=== PATIENT | female | born 1955 | race Caucasian/White ===

== ENCOUNTER 2018-01-02 14:53 | Inpatient (IN) | payer MEDICARE, OTHER ==
[~2018-01-02] VITALS: Ht 167.6 cm; Wt 115.4 kg
[~2018-01-02 14:53] MED LIST: ALBU8.5H8 IH; AMLO2.5T PO; ARIP15TA3 PO; ESCI20TA38 PO; FURO20TA4 PO; LEVE500T PO; LEVO15TA5 PO; LEVO200T8 PO; LITH300T16 PO; LORA1TAB PO; MULT1TAB74 PO; QUET25TA PO; ZOLP10TA5 PO
[2018-01-02 15:38] LABS: BASOPHILS # (AUTO) 0.1 X10'3 (0-0.2); BASOPHILS % (AUTO) 0.8 % (0-1); EOSINOPHILS # (AUTO) 0.3 X10'3 (0-0.9); EOSINOPHILS % (AUTO) 2.8 % (0-6); HEMATOCRIT 41.3 % (35.0-45.0); HEMOGLOBIN 13.7 g/dl (12.0-16.0); LYMPHOCYTES # (AUTO) 1.7 X10'3 (1.1-4.8); LYMPHOCYTES % (AUTO) 15.5 % (21-51); MEAN CORPUSCULAR HEMOGLOBIN 28.4 PG (27.0-31.0); MEAN CORPUSCULAR HGB CONC 33.3 % (33.0-36.5); MEAN CORPUSCULAR VOLUME 85.2 FL (78-98); MEAN PLATELET VOLUME 9.2 FL (7.4-10.4); MONOCYTES # (AUTO) 0.7 X10'3 (0-0.9); MONOCYTES % (AUTO) 6.5 % (2-12); NEUTROPHILS # (AUTO) 8.2 X10'3 (1.8-7.7); NEUTROPHILS % (AUTO) 74.4 % (42-75); PLATELET COUNT 223 X10'3 (140-440); RED BLOOD COUNT 4.85 X10'6 (4.20-5.60); RED CELL DISTRIBUTION WIDTH 15.4 % (11.5-14.5)
[2018-01-02 15:49] LABS: PARTIAL THROMBOPLASTIN TIME 25 SECONDS (22-32)
[2018-01-02 16:02] LABS: ALANINE AMINOTRANSFERASE 44 U/L (12-78); ALBUMIN 3.6 G/DL (3.4-5.0); ALBUMIN/GLOBULIN RATIO 0.8 (1.1-1.5); ALKALINE PHOSPHATASE 107 IU/L (46-116); ANION GAP 9 (8-16); ASPARTATE AMINO TRANSFERASE 28 U/L (10-37); BILIRUBIN,TOTAL 0.3 MG/DL (0.1-1.0); BLOOD UREA NITROGEN 18 MG/DL (7-18); BUN/CREATININE RATIO 16.4 (6.6-38.0); CALCIUM 9.5 MG/DL (8.5-10.1); CHLORIDE 100 MMOL/L (99-107); GLUCOSE 226 MG/DL (70-104); POTASSIUM 4.8 MMOL/L (3.5-5.1); SODIUM 137 MMOL/L (135-145); TOTAL CARBON DIOXIDE 27.6 MMOL/L (24-32); TOTAL PROTEIN 7.9 G/DL (6.4-8.2); eGFR 50 ML/MIN
[2018-01-02] MEDS ORDERED: clindamycin 600mg/D5W 50ml 50 ML IV ONE (17:35)
[2018-01-02] MEDS ORDERED: ZOLPIDEM TARTRATE 10 MG PO PRN (17:40)
[2018-01-02] MEDS ORDERED: furosemide 40mg tablet PO PRN (17:40)
[2018-01-02] MEDS ORDERED: non-formulary drug (Albuterol Sulfate (Proair Hfa) 2 PUFFS) IH PRN (17:40)
[2018-01-02] MEDS ORDERED: normal saline 1000ML IV soln IVB ONE (17:40)
[2018-01-02] MEDS ORDERED: zolpidem 5mg tablet PO PRN (17:50)
[2018-01-02] MEDS ORDERED: MESSAGE TO PHARMACY PO ONE (17:50)
[2018-01-02] MEDS ORDERED: mag hydrox/Alum hydrox/simeth 30ml oral suspension PO PRN (17:50)
[2018-01-02] MEDS ORDERED: dextrose ORAL solution 15 GM/59 ML bottle PO PRN ×2 (17:50)
[2018-01-02] MEDS ORDERED: dextrose 50%-water 50ml dispensing syringe IV PRN ×2 (17:50)
[2018-01-02] MEDS ORDERED: acetaminophen 325mg tablet PO PRN (17:50)
[2018-01-02] MEDS ORDERED: magnesium hydroxide 30ml (MOM) UD suspension PO PRN (17:50)
[2018-01-02] MEDS ORDERED: glucagon, human recombinant 1mg kit SUBCUT PRN (17:50)
[2018-01-02] MEDS ORDERED: ondansetron/PF 4mg/2ml inj IV PRN (17:50)
[2018-01-02] MEDS ORDERED: albuterol 2.5 MG/3 ML nebule NEB PRN (17:55)
[2018-01-02] MEDS ORDERED: non-formulary drug (Levetiracetam 500 MG) PO SCH (20:00)
[2018-01-02] MEDS: levetiracetam 250mg tablet PO SCH (20:05)
[2018-01-02] MEDS: LORazepam 1 MG tablet PO SCH (20:05)
[2018-01-02 20:35] VITALS: BP 149/80
[2018-01-02] MEDS: lithium carbonate 300mg SR tablet (LithoBID) PO SCH (22:03)
[2018-01-02] MEDS: QUEtiapine 25mg tablet PO SCH (22:03)
[2018-01-02] MEDS: insulin glargine (Lantus) pen - multi-dose SQ SCH (22:14)
[2018-01-03] VITALS: BP 152/89
[2018-01-03 07:00] VITALS: BP 172/94
[2018-01-03] MEDS ORDERED: ARIPIPRAZOLE PO SCH (08:00)
[2018-01-03] MEDS ORDERED: non-formulary drug (Multivitamins 1 TABLET) PO SCH (08:00)
[2018-01-03] MEDS ORDERED: LEVOMEFOLATE CALCIUM PO SCH (08:00)
[2018-01-03] MEDS: levoTHYROXINE 175mcg tablet PO SCH (08:38)
[2018-01-03] MEDS: levetiracetam 250mg tablet PO SCH ×2 (08:38→20:47)
[2018-01-03] MEDS: amLODIPine 2.5mg tablet PO SCH (08:38)
[2018-01-03] MEDS: LORazepam 1 MG tablet PO SCH ×3 (08:38→20:47)
[2018-01-03] MEDS: multivitamins, therapeutics tablet PO SCH (08:38)
[2018-01-03] MEDS: aripiprazole 5mg tablet PO SCH (08:39)
[2018-01-03] MEDS: citalopram 20mg tablet PO SCH (08:39)
[2018-01-03] MEDS: insulin Lispro (HumaLOG) vial - multi-dose SQ SCH ×3 (09:56→19:20)
[2018-01-03 11:00] VITALS: BP 128/101
[2018-01-03] MEDS: lactobacillus rhamnosus 10,000 MMU CELLS/CAPSULE PO SCH (17:09)
[2018-01-03 20:00] VITALS: BP 156/83
[2018-01-03] MEDS: QUEtiapine 25mg tablet PO SCH (20:47)
[2018-01-03] MEDS: lithium carbonate 300mg SR tablet (LithoBID) PO SCH (20:47)
[2018-01-03] MEDS: insulin glargine (Lantus) pen - multi-dose SQ SCH (21:06)
[2018-01-04] VITALS: BP 169/90
[2018-01-04 07:00] VITALS: BP 144/87
[2018-01-04] MEDS: aripiprazole 5mg tablet PO SCH (07:29)
[2018-01-04] MEDS: LORazepam 1 MG tablet PO SCH ×2 (07:29→13:00)
[2018-01-04] MEDS: multivitamins, therapeutics tablet PO SCH (07:30)
[2018-01-04] MEDS: lactobacillus rhamnosus 10,000 MMU CELLS/CAPSULE PO SCH (07:30)
[2018-01-04] MEDS: citalopram 20mg tablet PO SCH (07:30)
[2018-01-04] MEDS: levetiracetam 250mg tablet PO SCH (07:30)
[2018-01-04] MEDS: levoTHYROXINE 175mcg tablet PO SCH (07:30)
[2018-01-04] MEDS: amLODIPine 2.5mg tablet PO SCH (07:30)
[2018-01-04] MEDS ORDERED: VANCOMYCIN LEVEL IV ONE (07:30)
[2018-01-04] MEDS: insulin Lispro (HumaLOG) vial - multi-dose SQ SCH (08:42)
[2018-01-04 11:00] VITALS: BP 148/80
[2018-01-04] MEDS ORDERED: BREX2TAB PO (11:52)
[2018-01-04] MEDS ORDERED: BREXPIPRAZOLE 1 MG PO SCH (12:10)
[2018-01-04] MEDS ORDERED: LEVO500T2 PO (15:20)
[2018-01-04] MEDS ORDERED: vancomycin inj 1,750 MG in normal saline 500ml IV soln 500 ML IV SCH (20:00)
[2018-01-06] MEDS ORDERED: VANCOMYCIN LEVEL IV ONE (07:30)
== END 2018-01-04 15:47 | disposition home or self-care (01) | DRG 602 ==
LOC: ER 14:53 → ED HOLD 17:49 → SUR 3N 20:30
PROVIDERS: ADMIT Internal Medicine; ATTEND Internal Medicine
DX: L03.116 Cellulitis of left lower limb (principal); E43 Unspecified severe protein-calorie malnutrition; Z68.41 Body mass index [BMI] 40.0-44.9, adult; I69.354 Hemiplegia and hemiparesis following cerebral infarction affecting left non-dominant side; E66.01 Morbid (severe) obesity due to excess calories; F20.9 Schizophrenia, unspecified; E11.9 Type 2 diabetes mellitus without complications; E78.00 Pure hypercholesterolemia, unspecified; F32.9 Major depressive disorder, single episode, unspecified; F41.9 Anxiety disorder, unspecified; G40.909 Epilepsy, unspecified, not intractable, without status epilepticus; I10 Essential (primary) hypertension; J44.9 Chronic obstructive pulmonary disease, unspecified; K21.9 Gastro-esophageal reflux disease without esophagitis; G89.29 Other chronic pain; M54.9 Dorsalgia, unspecified; E03.9 Hypothyroidism, unspecified; F12.90 Cannabis use, unspecified, uncomplicated; Z60.2 Problems related to living alone; Z79.899 Other long term (current) drug therapy; Z87.891 Personal history of nicotine dependence
CPT/HCPCS: 36415; 80053; 80202; 82948; 83036; 83605; 84145; 85025; 85610; 85730; 87040; 87070; 93971; 94760; 99285; A4315; C1758; J1815; J3370; J3490; J7030

== ENCOUNTER 2018-02-06 18:38 | Inpatient (IN) | payer MEDICARE, OTHER ==
[~2018-02-06] VITALS: Ht 5367.7 cm; Wt 113.6 kg
[~2018-02-06 18:38] MED LIST changes: +BREX2TAB PO
[2018-02-06] MEDS ORDERED: ondansetron/PF 4mg/2ml inj IV ONE (20:10)
[2018-02-06] MEDS ORDERED: normal saline 1000ML IV soln IVB ONE ×3 (20:10→21:45)
[2018-02-06 21:09] LABS: BASOPHILS % (AUTO) 0.1 % (0-1); EOSINOPHILS % (AUTO) 0 % (0-6); HEMATOCRIT 44.5 % (35.0-45.0); LYMPHOCYTES # (AUTO) 0.6 X10'3 (1.1-4.8); LYMPHOCYTES % (AUTO) 1.9 % (21-51); MEAN CORPUSCULAR HEMOGLOBIN 28.6 PG (27.0-31.0); MEAN CORPUSCULAR HGB CONC 33.7 % (33.0-36.5); MEAN CORPUSCULAR VOLUME 85.1 FL (78-98); MEAN PLATELET VOLUME 9.8 FL (7.4-10.4); MONOCYTES # (AUTO) 0.7 X10'3 (0-0.9); MONOCYTES % (AUTO) 2.4 % (2-12); NEUTROPHILS # (AUTO) 29.2 X10'3 (1.8-7.7); NEUTROPHILS % (AUTO) 95.6 % (42-75); PLATELET COUNT 195 X10'3 (140-440); RED BLOOD COUNT 5.23 X10'6 (4.20-5.60); RED CELL DISTRIBUTION WIDTH 14.4 % (11.5-14.5)
[2018-02-06 21:16] LABS: WHITE BLOOD COUNT 30.5 X10'3 (4.5-11.0)
[2018-02-06 21:25] LABS: AMMONIA < 10 UMOL/L (11-32)
[2018-02-06 21:35] LABS: ALANINE AMINOTRANSFERASE 44 U/L (12-78); ALBUMIN 3.8 G/DL (3.4-5.0); ALBUMIN/GLOBULIN RATIO 0.8 (1.1-1.5); ALKALINE PHOSPHATASE 96 IU/L (46-116); ANION GAP 16 (8-16); ASPARTATE AMINO TRANSFERASE 27 U/L (10-37); BILIRUBIN,TOTAL 0.7 MG/DL (0.1-1.0); BLOOD UREA NITROGEN 14 MG/DL (7-18); BUN/CREATININE RATIO 11.3 (6.6-38.0); CALCIUM 10.2 MG/DL (8.5-10.1); CHLORIDE 98 MMOL/L (99-107); CREATINE KINASE 62 U/L (26-192); CREATININE 1.24 MG/DL (0.40-0.90); GLUCOSE 307 MG/DL (70-104); MAGNESIUM 1.5 MG/DL (1.5-2.4); PHOSPHORUS 2.2 MG/DL (2.3-4.5); SODIUM 136 MMOL/L (135-145); TOTAL CARBON DIOXIDE 22.5 MMOL/L (24-32); TOTAL PROTEIN 8.7 G/DL (6.4-8.2); eGFR 44 ML/MIN
[2018-02-06 21:44] LABS: LACTIC SEPSIS 5.6 MMOL/L (0.4-2.0)
[2018-02-06] MEDS ORDERED: CefTRIAXone 2gm/NS 100ml IVPB 100 ML IV ONE ×2 (21:45→23:55)
[2018-02-06 22:22] LABS: TOTAL CELLS COUNTED 100
[2018-02-06 22:23] LABS: PLATELET ESTIMATE NORMAL
[2018-02-06 22:28] LABS: BURR CELLS 1+; TARGET CELLS FEW
[2018-02-06 22:29] LABS: LARGE PLATELETS MODERATE
[2018-02-06] MEDS ORDERED: LORazepam 2 mg/ml vial ONE (23:19)
[2018-02-06] MEDS ORDERED: LORazepam 2 mg/ml vial IV ONE (23:20)
[2018-02-06] MEDS ORDERED: levetiracetam inj 1,500 MG in normal saline 100ml IV soln 85 ML IV ONE (23:25)
[2018-02-06] MEDS ORDERED: vancomycin/NS 1 GM ADD-VANTAGE 250 ML IV ONE (23:25)
[2018-02-06] MEDS ORDERED: acetaminophen 1,000mg/100ml IV 100 ML IV ONE (23:50)
[2018-02-07] MEDS: normal saline 1000ml 1,000 ML IV SCH ×3 (00:04→15:52)
[2018-02-07] MEDS ORDERED: HYDROcodone/acetaminophen 10/325mg tab PO PRN (00:05)
[2018-02-07] MEDS ORDERED: mag hydrox/Alum hydrox/simeth 30ml oral suspension PO PRN (00:05)
[2018-02-07] MEDS ORDERED: magnesium hydroxide 30ml (MOM) UD suspension PO PRN (00:05)
[2018-02-07] MEDS ORDERED: magnesium 2GM in 50ml NS 50 ML IV PRN (00:05)
[2018-02-07] MEDS ORDERED: potassium Cl 20 mEq SR tablet PO PRN ×2 (00:05)
[2018-02-07] MEDS ORDERED: magnesium Cl slow-release 64mg tablet PO PRN (00:05)
[2018-02-07] MEDS ORDERED: potassium Cl 40MEQ/NS 500ml 500 ML IV PRN ×2 (00:05)
[2018-02-07] MEDS ORDERED: ondansetron/PF 4mg/2ml inj IV PRN (00:05)
[2018-02-07] MEDS ORDERED: HYDROcodone/acetaminophen 5mg/325mg tablet PO PRN (00:05)
[2018-02-07] MEDS ORDERED: magnesium 4gm in 100ml NS 100 ML IV PRN (00:05)
[2018-02-07] MEDS ORDERED: levetiracetam 100mg/ml inj IV ONE (00:10)
[2018-02-07 00:13] LABS: CLARITY,URINE SLIGHTLY CLOUDY (Clear); COLOR,URINE YELLOW (Yellow); GLUCOSE, URINE 250 mg/dl (Neg); KETONES,URINE 15 mg/dl (Neg); LEUKOCYTE ESTERASE ,URINE NEGATIVE (Neg); NITRITES, URINE NEGATIVE (Neg); OCCULT BLOOD,URINE TRACE-INTACT (Neg); PH,URINE 6.5 (4.8-8.0); PROTEIN,URINE 30 mg/dl (Neg); UROBILINOGEN,URINE 0.2 E.U/dL (0.2-1.0)
[2018-02-07 00:14] LABS: UA COLLECTION TYPE CLN CATCH MIDSTREAM
[2018-02-07 00:20] LABS: RBC,URINE 0-2 /HPF (0-2)
[2018-02-07 00:21] LABS: MUCUS STRANDS MANY /LPF (Neg); SQUAMOUS EPITHELIAL CELL,UR FEW /LPF (FEW); URINE AMPHETAMINE SCREEN NEGATIVE (Neg); URINE BARBITUATE SCREEN NEGATIVE (Neg); URINE BENZODIAZEPINES SCREEN NEGATIVE (Neg); URINE CANNABINOID SCREEN POSITIVE (Neg); URINE COCAINE SCREEN NEGATIVE (Neg); URINE METHADONE SCREEN NEGATIVE (Neg); URINE OPIATE SCREEN NEGATIVE (Neg); URINE PHENCYCLIDINE SCREEN NEGATIVE (Neg)
[2018-02-07 00:28] LABS: BACTERIA,URINE FEW /HPF (Neg)
[2018-02-07] MEDS: acetaminophen 325mg tablet PO PRN ×4 (01:17→23:42)
[2018-02-07 04:40] LABS: HEMOGLOBIN A1C 8.7 % (4.5-6.2)
[2018-02-07] MEDS ORDERED: vancomycin/NS 1 GM ADD-VANTAGE 250 ML X 1 DOSE IV ONE (06:55)
[2018-02-07] MEDS ORDERED: LEVO175T7 PO (06:56)
[2018-02-07] MEDS: LEVOMEFOLATE CALCIUM PO SCH ×2 (07:05→08:00)
[2018-02-07] MEDS: heparin, porcine 5000 units/ml vial SQ SCH (08:00)
[2018-02-07] MEDS ORDERED: escitalopram 20mg tablet PO SCH (08:00)
[2018-02-07] MEDS ORDERED: vancomycin/NS 1 GM ADD-VANTAGE 250 ML IV SCH (08:00)
[2018-02-07] MEDS: K and/or MAG REPLACEMENT MC SCH (08:21)
[2018-02-07 08:31] LABS: BASOPHILS % (AUTO) 0 % (0-1); EOSINOPHILS % (AUTO) 0 % (0-6); HEMOGLOBIN 13.7 g/dl (12.0-16.0); LYMPHOCYTES # (AUTO) 0.8 X10'3 (1.1-4.8); LYMPHOCYTES % (AUTO) 2.8 % (21-51); MEAN CORPUSCULAR HEMOGLOBIN 29.1 PG (27.0-31.0); MEAN CORPUSCULAR HGB CONC 34.3 % (33.0-36.5); MEAN CORPUSCULAR VOLUME 84.9 FL (78-98); MONOCYTES # (AUTO) 0.5 X10'3 (0-0.9); MONOCYTES % (AUTO) 1.6 % (2-12); NEUTROPHILS # (AUTO) 27.2 X10'3 (1.8-7.7); NEUTROPHILS % (AUTO) 95.6 % (42-75); PLATELET COUNT 164 X10'3 (140-440); RED BLOOD COUNT 4.71 X10'6 (4.20-5.60); RED CELL DISTRIBUTION WIDTH 15.1 % (11.5-14.5)
[2018-02-07 08:33] LABS: WHITE BLOOD COUNT 28.5 X10'3 (4.5-11.0)
[2018-02-07] MEDS ORDERED: LORazepam 2 mg/ml vial IV PRN (08:45)
[2018-02-07] MEDS ORDERED: CefTRIAXone 2gm/NS 100ml IVPB 100 ML IV SCH ×2 (08:45→21:00)
[2018-02-07 08:50] LABS: TOTAL CELLS COUNTED 100
[2018-02-07 08:51] LABS: ANISOCYTOSIS 1+; PLATELET ESTIMATE NORMAL; POIKILOCYTOSIS 1+; TARGET CELLS FEW
[2018-02-07] MEDS ORDERED: dextrose 50%-water 50ml dispensing syringe IV PRN ×2 (08:55)
[2018-02-07] MEDS ORDERED: dextrose ORAL solution 15 GM/59 ML bottle PO PRN ×2 (08:55)
[2018-02-07] MEDS ORDERED: MESSAGE TO PHARMACY PO ONE (08:55)
[2018-02-07] MEDS ORDERED: glucagon, human recombinant 1mg kit SUBCUT PRN (08:55)
[2018-02-07 08:57] LABS: ALANINE AMINOTRANSFERASE 36 U/L (12-78); ALBUMIN 2.9 G/DL (3.4-5.0); ALBUMIN/GLOBULIN RATIO 0.7 (1.1-1.5); ALKALINE PHOSPHATASE 75 IU/L (46-116); ANION GAP 14 (8-16); ASPARTATE AMINO TRANSFERASE 21 U/L (10-37); BILIRUBIN,TOTAL 0.5 MG/DL (0.1-1.0); BLOOD UREA NITROGEN 13 MG/DL (7-18); BUN/CREATININE RATIO 12.5 (6.6-38.0); CALCIUM 8.8 MG/DL (8.5-10.1); CHLORIDE 104 MMOL/L (99-107); CREATININE 1.04 MG/DL (0.40-0.90); GLUCOSE 253 MG/DL (70-104); POTASSIUM 3.9 MMOL/L (3.5-5.1); SODIUM 139 MMOL/L (135-145); TOTAL CARBON DIOXIDE 21.5 MMOL/L (24-32); TOTAL PROTEIN 7.3 G/DL (6.4-8.2); eGFR 53 ML/MIN
[2018-02-07] MEDS: levoTHYROXINE 175mcg tablet PO SCH (09:52)
[2018-02-07] MEDS: aripiprazole 5mg tablet PO SCH (09:53)
[2018-02-07] MEDS: lactobacillus rhamnosus 10,000 MMU CELLS/CAPSULE PO SCH ×2 (09:53→21:04)
[2018-02-07] MEDS: amLODIPine 2.5mg tablet PO SCH (09:53)
[2018-02-07] MEDS: LORazepam 1 MG tablet PO SCH ×3 (09:54→21:03)
[2018-02-07] MEDS: levetiracetam 250mg tablet PO SCH ×2 (09:54→21:03)
[2018-02-07] MEDS: citalopram 20mg tablet PO SCH (09:54)
[2018-02-07 10:04] LABS: INR 1.2 INR; PARTIAL THROMBOPLASTIN TIME 29 SECONDS (22-32); PROTHROMBIN TIME 12.1 SECONDS (9.0-12.0)
[2018-02-07 11:20] VITALS: BP 147/87
[2018-02-07 11:32] VITALS: BP 136/57
[2018-02-07] MEDS: vancomycin inj. 750 MG in normal saline 250ml IV soln 250 ML IV SCH ×2 (11:46→16:26)
[2018-02-07] MEDS: albuterol 2.5 MG/3 ML nebule NEB SCH ×3 (12:00→20:30)
[2018-02-07 12:37] LABS: GLUCOSE,CSF 166 MG/DL (40-75); TOTAL PROTEIN,CSF 46 MG/DL (30-60)
[2018-02-07 12:50] LABS: APPEARANCE,CSF CLEAR; CSF SUPERNATANT COLOR COLORLESS; CSF VOLUME 14 ML; TUBE# COUNTED 4
[2018-02-07 12:51] LABS: CSF RBC 3 /CU MM (0); CSF WBC CT 2 /CU MM (0-5)
[2018-02-07] MEDS: insulin Lispro (HumaLOG) vial - multi-dose SQ SCH ×2 (14:19→18:00)
[2018-02-07 19:00] VITALS: BP 155/75
[2018-02-07] MEDS ORDERED: VANCOMYCIN 750MG IV in NS 250 ML IV SCH (20:00)
[2018-02-07] MEDS: insulin glargine (Lantus) pen - multi-dose SQ SCH (21:00)
[2018-02-07] MEDS: QUEtiapine 25mg tablet PO SCH (21:04)
[2018-02-07] MEDS: lithium carbonate 300mg SR tablet (LithoBID) PO SCH (21:04)
[2018-02-07 22:00] VITALS: BP 133/75
[2018-02-08] MEDS: albuterol 2.5 MG/3 ML nebule NEB SCH ×7 (00:09→23:48)
[2018-02-08] MEDS ORDERED: ibuprofen tablet 400 MG TABLET PO PRN (01:45)
[2018-02-08] MEDS ORDERED: vancomycin inj. 750 MG in normal saline 250ml IV soln 250 ML IV SCH (05:00)
[2018-02-08 06:00] VITALS: BP 133/69
[2018-02-08] MEDS ORDERED: VANCOMYCIN LEVEL IV ONE (07:30)
[2018-02-08] MEDS: LEVOMEFOLATE CALCIUM PO SCH (08:00)
[2018-02-08] MEDS ORDERED: CefTRIAXone 2gm/NS 100ml IVPB 100 ML IV SCH (08:00)
[2018-02-08] MEDS: K and/or MAG REPLACEMENT MC SCH (08:00)
[2018-02-08 08:19] LABS: BASOPHILS % (AUTO) 0 % (0-1); EOSINOPHILS % (AUTO) 0.1 % (0-6); HEMOGLOBIN 12.3 g/dl (12.0-16.0); LYMPHOCYTES # (AUTO) 0.5 X10'3 (1.1-4.8); LYMPHOCYTES % (AUTO) 3.3 % (21-51); MEAN CORPUSCULAR HEMOGLOBIN 28.8 PG (27.0-31.0); MEAN CORPUSCULAR HGB CONC 34.2 % (33.0-36.5); MEAN CORPUSCULAR VOLUME 84.2 FL (78-98); MEAN PLATELET VOLUME 9.3 FL (7.4-10.4); MONOCYTES # (AUTO) 0.2 X10'3 (0-0.9); MONOCYTES % (AUTO) 1.5 % (2-12); NEUTROPHILS # (AUTO) 14.1 X10'3 (1.8-7.7); NEUTROPHILS % (AUTO) 95.1 % (42-75); PLATELET COUNT 137 X10'3 (140-440); RED BLOOD COUNT 4.27 X10'6 (4.20-5.60); RED CELL DISTRIBUTION WIDTH 15.2 % (11.5-14.5); WHITE BLOOD COUNT 14.8 X10'3 (4.5-11.0)
[2018-02-08 08:36] LABS: ALANINE AMINOTRANSFERASE 32 U/L (12-78); ALBUMIN 2.3 G/DL (3.4-5.0); ALBUMIN/GLOBULIN RATIO 0.5 (1.1-1.5); ALKALINE PHOSPHATASE 75 IU/L (46-116); ANION GAP 12 (8-16); ASPARTATE AMINO TRANSFERASE 21 U/L (10-37); BILIRUBIN,TOTAL 0.4 MG/DL (0.1-1.0); BLOOD UREA NITROGEN 16 MG/DL (7-18); CALCIUM 8.6 MG/DL (8.5-10.1); CHLORIDE 108 MMOL/L (99-107); CHOL/HDL RATIO 5.5 (0.00-4.99); CHOLESTEROL 122 MG/DL (0-200); GLUCOSE 193 MG/DL (70-104); HDL CHOLESTEROL 22 MG/DL (35-60); LDL CHOLESTEROL 57 MG/DL (50-100); MAGNESIUM 1.9 MG/DL (1.5-2.4); POTASSIUM 3.1 MMOL/L (3.5-5.1); SODIUM 141 MMOL/L (135-145); TOTAL PROTEIN 6.6 G/DL (6.4-8.2); TRIGLYCERIDES 165 MG/DL (20-135); eGFR 72 ML/MIN
[2018-02-08] MEDS: lactobacillus rhamnosus 10,000 MMU CELLS/CAPSULE PO SCH ×2 (08:44→22:07)
[2018-02-08] MEDS: amLODIPine 2.5mg tablet PO SCH (08:45)
[2018-02-08] MEDS: levetiracetam 250mg tablet PO SCH ×2 (08:45→22:07)
[2018-02-08] MEDS: levoTHYROXINE 175mcg tablet PO SCH (08:45)
[2018-02-08] MEDS: citalopram 20mg tablet PO SCH (08:45)
[2018-02-08] MEDS: LORazepam 1 MG tablet PO SCH ×3 (08:45→22:07)
[2018-02-08] MEDS: heparin, porcine 5000 units/ml vial SQ SCH ×2 (08:45→22:06)
[2018-02-08] MEDS: insulin Lispro (HumaLOG) vial - multi-dose SQ SCH ×3 (09:23→18:43)
[2018-02-08 09:40] LABS: C DIFF ANTIGEN SEE COMMENTS (NEGATIVE); C DIFF SPECIMEN=DIARRHEA? ACCEPTABLE; C DIFFICILE TOXINS A&B NEGATIVE (Neg)
[2018-02-08 10:00] VITALS: BP 130/87
[2018-02-08 10:44] LABS: C DIFF TOXIN (LAMP) NEGATIVE (NEG)
[2018-02-08] MEDS: aripiprazole 5mg tablet PO SCH (11:30)
[2018-02-08] MEDS ORDERED: levoFLOXACIN-Levaquin 500mg/D5 100 ML IV SCH (14:25)
[2018-02-08] MEDS: clindamycin 600mg/D5W 50ml 50 ML IV SCH ×2 (15:31→20:00)
[2018-02-08] MEDS ORDERED: iohexol 300mg/ml 100ml inj. ONE (17:17)
[2018-02-08 18:00] VITALS: BP 163/96
[2018-02-08] MEDS ORDERED: levoFLOXACIN 500mg tablet PO ONE (21:05)
[2018-02-08] MEDS: clindamycin 150mg capsule PO SCH (22:06)
[2018-02-08] MEDS: lithium carbonate 300mg SR tablet (LithoBID) PO SCH (22:07)
[2018-02-08] MEDS: QUEtiapine 25mg tablet PO SCH (22:07)
[2018-02-08] MEDS: insulin glargine (Lantus) pen - multi-dose SQ SCH (22:13)
[2018-02-09] MEDS: clindamycin 150mg capsule PO SCH ×2 (02:07→09:52)
[2018-02-09] MEDS: albuterol 2.5 MG/3 ML nebule NEB SCH ×3 (03:56→11:49)
[2018-02-09] MEDS ORDERED: VANCOMYCIN LEVEL IV ONE (04:30)
[2018-02-09 06:00] VITALS: BP 127/81
[2018-02-09 06:07] LABS: BASOPHILS % (AUTO) 0.3 % (0-1); EOSINOPHILS # (AUTO) 0.1 X10'3 (0-0.9); EOSINOPHILS % (AUTO) 1.2 % (0-6); HEMATOCRIT 35.3 % (35.0-45.0); HEMOGLOBIN 12.1 g/dl (12.0-16.0); LYMPHOCYTES # (AUTO) 0.9 X10'3 (1.1-4.8); LYMPHOCYTES % (AUTO) 8.4 % (21-51); MEAN CORPUSCULAR HEMOGLOBIN 29.3 PG (27.0-31.0); MEAN CORPUSCULAR HGB CONC 34.3 % (33.0-36.5); MEAN CORPUSCULAR VOLUME 85.6 FL (78-98); MEAN PLATELET VOLUME 10.2 FL (7.4-10.4); MONOCYTES # (AUTO) 0.6 X10'3 (0-0.9); MONOCYTES % (AUTO) 5.6 % (2-12); NEUTROPHILS # (AUTO) 9.2 X10'3 (1.8-7.7); NEUTROPHILS % (AUTO) 84.5 % (42-75); PLATELET COUNT 135 X10'3 (140-440); RED BLOOD COUNT 4.13 X10'6 (4.20-5.60); RED CELL DISTRIBUTION WIDTH 14.9 % (11.5-14.5); WHITE BLOOD COUNT 10.9 X10'3 (4.5-11.0)
[2018-02-09 06:29] LABS: ALANINE AMINOTRANSFERASE 41 U/L (12-78); ALBUMIN 2.3 G/DL (3.4-5.0); ALBUMIN/GLOBULIN RATIO 0.5 (1.1-1.5); ALKALINE PHOSPHATASE 99 IU/L (46-116); ANION GAP 12 (8-16); ASPARTATE AMINO TRANSFERASE 29 U/L (10-37); BILIRUBIN,TOTAL 0.4 MG/DL (0.1-1.0); BLOOD UREA NITROGEN 14 MG/DL (7-18); BUN/CREATININE RATIO 17.5 (6.6-38.0); CHLORIDE 109 MMOL/L (99-107); GLUCOSE 176 MG/DL (70-104); MAGNESIUM 2.2 MG/DL (1.5-2.4); POTASSIUM 3.3 MMOL/L (3.5-5.1); SODIUM 141 MMOL/L (135-145); TOTAL CARBON DIOXIDE 20.4 MMOL/L (24-32); eGFR 72 ML/MIN
[2018-02-09] MEDS: heparin, porcine 5000 units/ml vial SQ SCH ×2 (07:37→19:08)
[2018-02-09] MEDS: levetiracetam 250mg tablet PO SCH ×2 (07:37→19:08)
[2018-02-09] MEDS: lactobacillus rhamnosus 10,000 MMU CELLS/CAPSULE PO SCH ×2 (07:37→19:08)
[2018-02-09] MEDS: LORazepam 1 MG tablet PO SCH ×3 (07:38→21:23)
[2018-02-09] MEDS: levoTHYROXINE 175mcg tablet PO SCH (07:38)
[2018-02-09] MEDS: citalopram 20mg tablet PO SCH (07:38)
[2018-02-09] MEDS: amLODIPine 2.5mg tablet PO SCH (07:38)
[2018-02-09] MEDS: K and/or MAG REPLACEMENT MC SCH (08:00)
[2018-02-09] MEDS: LEVOMEFOLATE CALCIUM PO SCH (08:00)
[2018-02-09] MEDS: aripiprazole 5mg tablet PO SCH (09:51)
[2018-02-09 10:00] VITALS: BP 124/75
[2018-02-09] MEDS ORDERED: ATOR20TA66 (10:10)
[2018-02-09] MEDS ORDERED: LISI-604 (10:10)
[2018-02-09] MEDS ORDERED: OMEP-50 (10:10)
[2018-02-09] MEDS ORDERED: LAMO100T89 (10:10)
[2018-02-09] MEDS ORDERED: iohexol 300mg/ml 100ml inj. ONE (13:24)
[2018-02-09] MEDS: clindamycin 600mg/D5W 50ml 50 ML IV SCH ×2 (15:02→19:09)
[2018-02-09] MEDS ORDERED: albuterol 2.5 MG/3 ML nebule NEB PRN (15:05)
[2018-02-09] MEDS: insulin Lispro (HumaLOG) vial - multi-dose SQ SCH ×2 (15:17→19:04)
[2018-02-09 18:52] VITALS: BP 126/78
[2018-02-09] MEDS: ipratropium/albuterol 3ml nebule NEB SCH ×2 (19:00→23:47)
[2018-02-09] MEDS ORDERED: levoFLOXACIN-Levaquin 500mg/D5 100 ML IV SCH (21:00)
[2018-02-09] MEDS: lithium carbonate 300mg SR tablet (LithoBID) PO SCH (21:23)
[2018-02-09] MEDS: QUEtiapine 25mg tablet PO SCH (21:23)
[2018-02-09] MEDS: insulin glargine (Lantus) pen - multi-dose SQ SCH (21:25)
[2018-02-09 22:46] VITALS: BP 145/74
[2018-02-10] MEDS: clindamycin 600mg/D5W 50ml 50 ML IV SCH ×3 (02:23→14:00)
[2018-02-10] MEDS: ipratropium/albuterol 3ml nebule NEB SCH ×3 (03:37→11:24)
[2018-02-10 04:10] LABS: ALANINE AMINOTRANSFERASE 79 U/L (12-78); ALBUMIN 2.1 G/DL (3.4-5.0); ALBUMIN/GLOBULIN RATIO 0.4 (1.1-1.5); ALKALINE PHOSPHATASE 106 IU/L (46-116); ANION GAP 10 (8-16); ASPARTATE AMINO TRANSFERASE 59 U/L (10-37); BILIRUBIN,TOTAL 0.4 MG/DL (0.1-1.0); BLOOD UREA NITROGEN 12 MG/DL (7-18); BUN/CREATININE RATIO 14.6 (6.6-38.0); CALCIUM 8.6 MG/DL (8.5-10.1); CHLORIDE 110 MMOL/L (99-107); CREATININE 0.82 MG/DL (0.40-0.90); GLUCOSE 164 MG/DL (70-104); POTASSIUM 3.2 MMOL/L (3.5-5.1); SODIUM 144 MMOL/L (135-145); TOTAL PROTEIN 6.8 G/DL (6.4-8.2); eGFR 70 ML/MIN
[2018-02-10 05:00] VITALS: BP 118/70
[2018-02-10] MEDS ORDERED: magnesium 4gm in 100ml NS 100 ML IV PRN (05:10)
[2018-02-10] MEDS ORDERED: potassium Cl 40MEQ/NS 500ml 500 ML IV PRN ×2 (05:10)
[2018-02-10] MEDS ORDERED: potassium Cl 20 mEq SR tablet PO PRN ×2 (05:10)
[2018-02-10] MEDS ORDERED: magnesium Cl slow-release 64mg tablet PO PRN (05:10)
[2018-02-10] MEDS ORDERED: magnesium 2GM in 50ml NS 50 ML IV PRN (05:10)
[2018-02-10] MEDS: aripiprazole 5mg tablet PO SCH (07:54)
[2018-02-10] MEDS: levoTHYROXINE 175mcg tablet PO SCH (07:54)
[2018-02-10] MEDS: lactobacillus rhamnosus 10,000 MMU CELLS/CAPSULE PO SCH (07:54)
[2018-02-10] MEDS: citalopram 20mg tablet PO SCH (07:54)
[2018-02-10] MEDS: LORazepam 1 MG tablet PO SCH ×2 (07:54→13:25)
[2018-02-10] MEDS: levetiracetam 250mg tablet PO SCH (07:55)
[2018-02-10] MEDS: heparin, porcine 5000 units/ml vial SQ SCH (07:55)
[2018-02-10] MEDS: amLODIPine 2.5mg tablet PO SCH (07:55)
[2018-02-10] MEDS: LEVOMEFOLATE CALCIUM PO SCH (08:00)
[2018-02-10] MEDS: K and/or MAG REPLACEMENT MC SCH (08:00)
[2018-02-10] MEDS: insulin Lispro (HumaLOG) vial - multi-dose SQ SCH ×2 (09:11→13:26)
[2018-02-10 10:00] VITALS: BP 132/79
[2018-02-10] MEDS ORDERED: LEVO500T2 PO (12:28)
[2018-02-10] MEDS ORDERED: POTA20TA19 PO (12:38)
== END 2018-02-10 16:02 | disposition home health service (06) | DRG 871 ==
LOC: ER 18:39 → ED HOLD 02-07 00:04 → ORTHO 4S 02-07 18:52
PROVIDERS: ADMIT Internal Medicine; ATTEND Internal Medicine
PROC: 009U3ZX Drainage of Spinal Canal, Percutaneous Approach, Diagnostic (ICD-10-PCS; principal; 2018-02-07)
PROC: B01B1ZZ Fluoroscopy of Spinal Cord using Low Osmolar Contrast (ICD-10-PCS; 2018-02-07)
PROC: BQ2S1ZZ Computerized Tomography (CT Scan) of Left Lower Extremity using Low Osmolar Contrast (ICD-10-PCS; 2018-02-09)
DX: A40.1 Sepsis due to streptococcus, group B (principal); G93.41 Metabolic encephalopathy; K52.1 Toxic gastroenteritis and colitis; F03.90 Unspecified dementia, unspecified severity, without behavioral disturbance, psychotic disturbance, mood disturbance, and anxiety; R56.9 Unspecified convulsions; L03.116 Cellulitis of left lower limb; E87.1 Hypo-osmolality and hyponatremia; I69.354 Hemiplegia and hemiparesis following cerebral infarction affecting left non-dominant side; J44.1 Chronic obstructive pulmonary disease with (acute) exacerbation; E11.65 Type 2 diabetes mellitus with hyperglycemia; E66.01 Morbid (severe) obesity due to excess calories; E83.52 Hypercalcemia; F31.9 Bipolar disorder, unspecified; E03.9 Hypothyroidism, unspecified; E78.00 Pure hypercholesterolemia, unspecified; E78.5 Hyperlipidemia, unspecified; F20.9 Schizophrenia, unspecified; F41.9 Anxiety disorder, unspecified; I10 Essential (primary) hypertension; J44.9 Chronic obstructive pulmonary disease, unspecified; K21.9 Gastro-esophageal reflux disease without esophagitis; N28.9 Disorder of kidney and ureter, unspecified; F12.90 Cannabis use, unspecified, uncomplicated; G89.29 Other chronic pain; M54.9 Dorsalgia, unspecified; T36.8X5A Adverse effect of other systemic antibiotics, initial encounter; Y92.238 Other place in hospital as the place of occurrence of the external cause; Z99.3 Dependence on wheelchair; Z79.899 Other long term (current) drug therapy
CPT/HCPCS: 36415; 62270; 70450; 71045; 73701; 74176; 77003; 80053; 80061; 80178; 80305; 81001; 82140; 82550; 82945; 82948; 83036; 83605; 83735; 84100; 84157; 84443; 84484; 85025; 85610; 85730; 87015; 87040; 87070; 87075; 87077; 87088; 87186; 87210; 87324; 87449; 87493; 89051; 93005; 93971; 94640; 94760; 96361; 96365; 97110; 97116; 97162; 97530; 99285; A4620; A6258; C1758; J0131; J0696; J1644; J1815; J1953; J1956; J2060; J2405; J3370; J3480; J3490; J7030; Q9967

== ENCOUNTER 2021-03-21 09:56 | Outpatient (CLI) | payer MEDICARE ==
[~2021-03-21 09:56] MED LIST changes: -AMLO2.5T PO; +AMLO2.5T5 PO; +ATOR20TA66; -ESCI20TA38 PO; +ESCI20TA39 PO; -FURO20TA4 PO; +LAMO100T; +LEVO175T7 PO; -LEVO200T8 PO; +LISI-790; +MULT-620 PO; -MULT1TAB74 PO; +OMEP-50
== END 2021-03-21 23:59 | disposition home or self-care (01) ==
LOC: VAS 09:56
PROVIDERS: ATTEND Family Medicine
DX: R22.42 Localized swelling, mass and lump, left lower limb (principal)
CPT/HCPCS: 93971

== ENCOUNTER 2022-07-13 18:11 | Emergency (ER) | payer MEDICARE ==
[~2022-07-13] VITALS: Ht 167.6 cm; Wt 113.6 kg
[~2022-07-13 18:11] MED LIST changes: +ALBU8.5H17 IH; -ALBU8.5H8 IH; -LISI-790; +LISI5TAB22; -OMEP-50; +OMEP20CA16
[2022-07-13 18:48] VITALS: BP 142/75
[2022-07-13] MEDS ORDERED: LORazepam 1 MG tablet PO ONE (21:10)
[2022-07-13] MEDS ORDERED: naproxen 500mg tablet PO ONE (21:10)
[2022-07-13] MEDS ORDERED: NAPR-56 PO (21:14)
--- NOTE | 2022-07-13 22:09 | NUR ---
Left message with caregiver Gabriela that pt was being discharged. Pt will go home by [facility].
== END 2022-07-13 23:05 | disposition home or self-care (01) ==
LOC: ER 18:12
DX: S90.32XA Contusion of left foot, initial encounter (principal); E78.00 Pure hypercholesterolemia, unspecified; I10 Essential (primary) hypertension; J44.9 Chronic obstructive pulmonary disease, unspecified; K21.9 Gastro-esophageal reflux disease without esophagitis; E11.9 Type 2 diabetes mellitus without complications; G89.29 Other chronic pain; M54.50 Low back pain, unspecified; F12.90 Cannabis use, unspecified, uncomplicated; Z98.890 Other specified postprocedural states; W18.2XXA Fall in (into) shower or empty bathtub, initial encounter; Y93.89 Activity, other specified; Y92.89 Other specified places as the place of occurrence of the external cause; Y99.8 Other external cause status
CPT/HCPCS: 73120; 73590; 73630; 99284

== ENCOUNTER 2023-07-31 16:30 | Emergency (ER) | payer MEDICARE, MEDICAID ==
[~2023-07-31] VITALS: Ht 167.6 cm; Wt 113.6 kg
[~2023-07-31 16:30] MED LIST changes: -ALBU8.5H17 IH; -AMLO2.5T5 PO; +AMLO5TAB16 PO; -ARIP15TA3 PO; -ATOR20TA66; +ATOR20TA66 PO; +BREX1TAB PO; -BREX2TAB PO; +CIPR-259 PO; -LAMO100T; +LEVE250T PO; -LEVE500T PO; +LEVO150T8 PO; -LEVO15TA5 PO; -LEVO175T7 PO; -LISI5TAB22; +LISI5TAB22 PO; -LITH300T16 PO; -LORA1TAB PO; -MULT-620 PO; -OMEP20CA16; +OMEP20CA16 PO; -QUET25TA PO; +SEMA1PEN3 SQ; +SILV25CR21 TOP
[2023-07-31 20:22] VITALS: TEMP 98.5
[2023-07-31] MEDS ORDERED: acetaminophen 325mg tablet PO ONE (22:20)
[2023-07-31] MEDS ORDERED: LAMO100T PO (23:03)
[2023-07-31 23:13] LABS: HEMOGLOBIN 11.6 g/dl (12.0-16.0)
[2023-07-31 23:15] LABS: BASOPHILS # (AUTO) 0.1 X10'3 (0-0.2); BASOPHILS % (AUTO) 0.8 % (0-1); EOSINOPHILS # (AUTO) 0.2 X10'3 (0-0.9); EOSINOPHILS % (AUTO) 1.2 % (0-6); HEMATOCRIT 35.5 % (35.0-45.0); LYMPHOCYTES # (AUTO) 2.6 X10'3 (1.1-4.8); LYMPHOCYTES % (AUTO) 17.7 % (21-51); MEAN CORPUSCULAR HEMOGLOBIN 26.5 PG (27.0-31.0); MEAN CORPUSCULAR HGB CONC 32.8 g/dL (33.0-36.5); MEAN CORPUSCULAR VOLUME 80.9 FL (78-98); MEAN PLATELET VOLUME 9.4 FL (7.4-10.4); MONOCYTES # (AUTO) 1.2 X10'3 (0-0.9); MONOCYTES % (AUTO) 8.1 % (2-12); NEUTROPHILS # (AUTO) 10.8 X10'3 (1.8-7.7); NEUTROPHILS % (AUTO) 72.2 % (42-75); PLATELET COUNT 257 X10'3 (140-440); RED BLOOD COUNT 4.39 X10'6 (4.20-5.60); RED CELL DISTRIBUTION WIDTH 16.1 % (11.5-14.5); WHITE BLOOD COUNT 14.9 X10'3 (4.5-11.0)
[2023-07-31 23:29] LABS: ALANINE AMINOTRANSFERASE 31 U/L (12-78); ALBUMIN 2.6 G/DL (3.4-5.0); ALBUMIN/GLOBULIN RATIO 0.5 (1.1-1.5); ALKALINE PHOSPHATASE 88 IU/L (46-116); ANION GAP 11 (8-16); ASPARTATE AMINO TRANSFERASE 38 U/L (10-37); BILIRUBIN,TOTAL 0.6 MG/DL (0.1-1.0); BLOOD UREA NITROGEN 12 MG/DL (7-18); BUN/CREATININE RATIO 13.5 (10.0-20.0); CALCIUM 9.3 MG/DL (8.5-10.1); CHLORIDE 102 MMOL/L (99-107); CREATININE 0.89 MG/DL (0.40-0.90); GLUCOSE 167 MG/DL (70-104); POTASSIUM 3.2 MMOL/L (3.5-5.1); SODIUM 139 MMOL/L (135-145); TOTAL PROTEIN 7.8 G/DL (6.4-8.2); eCRCL 56 ML/MIN; eGFR 63 ML/MIN
[2023-07-31 23:31] LABS: CREATINE KINASE 202 U/L (26-192)
[2023-08-01] MEDS ORDERED: ciprofloxacin 250mg tablet PO SCH ×2 (00:36→10:00)
[2023-08-01] MEDS ORDERED: silver sulfadiazine cream 50gm TP PRN (01:15)
--- NOTE | 2023-08-01 05:10 | NUR ---
Patient incontinant of urine, patient changed, wound pictures taken of buttocks, see paper wound care documentation on chart.
[2023-08-01] MEDS ORDERED: levoTHYROXINE 75mcg tablet PO SCH (07:00)
--- NOTE | 2023-08-01 07:07 | NUR ---
pt refuses medications without eating first, will administer medications after breakfast is served
[2023-08-01] MEDS ORDERED: pantoprazole 40mg Tablet.DR PO SCH (07:30)
[2023-08-01] MEDS ORDERED: levetiracetam 250mg tablet PO SCH (08:00)
[2023-08-01] MEDS ORDERED: lisinopril 5mg tablet PO SCH (08:00)
[2023-08-01] MEDS ORDERED: amLODIPine 5mg tablet PO SCH (08:00)
[2023-08-01] MEDS ORDERED: ESCITALOPRAM OXALATE 5 MG TABLET PO SCH (08:00)
[2023-08-01] MEDS ORDERED: lamoTRIgine 100mg tablet PO SCH (08:00)
[2023-08-01] MEDS ORDERED: atorvastatin 20mg tablet PO SCH (08:00)
--- NOTE | 2023-08-01 08:36 | NUR ---
pt consumed 32g of carbs for breakfast
--- NOTE | 2023-08-01 08:38 | NUR ---
spoke with jairo from social work professor, she will see the pt after the morning meeting
--- NOTE | 2023-08-01 12:57 | NUR ---
PT WAS CLEANED UP AFTER AN INCONTINENT URINE EPISODE, A NON INVASIVE PURE WICK WAS PLACED.
--- NOTE | 2023-08-01 13:22 | NUR ---
CALLED [employer] FOR AN UPDATE BUT WASN'T ABLE TO GET KYM, LEFT A MESSAGE.
[2023-08-01] MEDS ORDERED: CEPH-585 PO (14:20)
[2023-08-01 17:41] VITALS: BP 151/84; PULSE 73; RESP 18; O2SAT 100
[2023-08-01] MEDS ORDERED: zolpidem 5mg tablet PO SCH (21:00)
[2023-08-04] MEDS ORDERED: (Semaglutide (Ozempic) 1 MG) SQ SCH (09:00)
== END 2023-08-01 17:43 | disposition home or self-care (01) ==
LOC: ER 16:30
DX: N39.0 Urinary tract infection, site not specified (principal); E78.00 Pure hypercholesterolemia, unspecified; I11.0 Hypertensive heart disease with heart failure; J44.9 Chronic obstructive pulmonary disease, unspecified; K21.9 Gastro-esophageal reflux disease without esophagitis; E11.9 Type 2 diabetes mellitus without complications; G89.29 Other chronic pain; M54.9 Dorsalgia, unspecified; F12.10 Cannabis abuse, uncomplicated; Z79.899 Other long term (current) drug therapy
CPT/HCPCS: 36415; 80053; 82550; 82948; 85025; 93005; 99285